=== PATIENT | male | born 1960 | race Caucasian/White ===

== ENCOUNTER 2023-06-23 17:58 | Inpatient (IN) | payer MEDICARE, OTHER ==
[~2023-06-23] VITALS: Ht 170.2 cm; Wt 79.4 kg
[~2023-06-23 17:58] MED LIST: INSU100V7 SQ; LISI-782 PO
[2023-06-23 18:30] LABS: BASOPHILS % (AUTO) 0.7 % (0.0-2.0); EOSINOPHILS # (AUTO) 0.2 K/uL (0.0-0.7); EOSINOPHILS % (AUTO) 2.6 % (0.0-7.0); HEMATOCRIT 31.2 % (36.7-47.1); HEMOGLOBIN 10.9 g/dL (12.5-16.3); LYMPHOCYTES # (AUTO) 1.7 K/uL (0.8-4.8); LYMPHOCYTES % (AUTO) 28.5 % (20.5-51.5); MEAN CORPUSCULAR HEMOGLOBIN 34.6 uug (23.8-33.4); MEAN CORPUSCULAR HGB CONC 35 g/dL (32.5-36.3); MEAN CORPUSCULAR VOLUME 98.9 fL (73.0-96.2); MONOCYTES # (AUTO) 0.7 K/uL (0.1-1.30); MONOCYTES % (AUTO) 11.3 % (0.0-11.0); NEUTROPHILS # (AUTO) 3.3 K/uL (1.8-8.9); NEUTROPHILS % (AUTO) 56.9 % (38.5-71.5); PLATELET COUNT (AUTO) 110 K/uL (152-348); RED BLOOD CELL COUNT(AUTO) 3.15 MIL/uL (4.06-5.63); RED CELL DISTRIBUTION WIDTH 15.2 % (12.1-16.2); WHITE BLOOD COUNT (AUTO) 5.8 K/uL (3.6-10.2)
[2023-06-23 18:31] LABS: DIFFERENTIAL COMMENT 1
[2023-06-23 18:38] LABS: CALCIUM 10.4 mg/dL (8.5-10.1); CARBON DIOXIDE 29 mmol/L (21-32); CHLORIDE 101 mmol/L (98-107); GLUCOSE 125 mg/dL (74-106); POTASSIUM 4.7 mmol/L (3.5-5.1); SODIUM SERUM 139 mmol/L (136-145); UREA NITROGEN, BLOOD 68 mg/dL (7-18)
[2023-06-23 18:44] LABS: CREATININE 8.3 mg/dL (0.6-1.3)
[2023-06-23 18:52] LABS: ALBUMIN 3.5 g/dL (3.4-5.0); ALKALINE PHOSPHATASE 136 U/L (50-136); ASPARTATE AMINOTRANSFERASE < 5 U/L (15-37); BILIRUBIN,DIRECT 0.1 mg/dL (0.0-0.2); BILIRUBIN,TOTAL 0.5 mg/dL (0.2-1.0); TOTAL PROTEIN, SERUM 7.5 g/dL (6.4-8.2)
[2023-06-23 18:53] LABS: ALANINE AMINOTRANSFERASE < 6 U/L (16-63); NT-PRO BNP 113004 pg/mL (0-125)
[2023-06-23] MEDS ORDERED: hydrALAZINE HCL 20 MG/1 ML VIAL ONE (19:10)
[2023-06-23] MEDS: hydrALAZINE HCL 20 MG/1 ML VIAL IV ONE (19:16)
[2023-06-23 19:33] VITALS: O2SAT 99
[2023-06-23] MEDS ORDERED: CLONIDINE HCL 0.1 MG TABLET PO PRN (20:15)
[2023-06-23] MEDS ORDERED: REMEDY ESSENTIAL ZINC PASTE 113 GM TP PRN (20:15)
[2023-06-23] MEDS ORDERED: ONDANSETRON 4 MG/2 ML VIAL IV PRN (20:15)
[2023-06-23] MEDS ORDERED: MAGNESIUM HYDROXIDE 30 ML LIQUID UDC PO PRN (20:15)
[2023-06-23] MEDS ORDERED: ACETAMINOPHEN 325 MG TABLET PO PRN (20:15)
[2023-06-23 22:00] VITALS: BP 133/74; TEMP 98.3; O2SAT 99
[2023-06-23] MEDS: HEPARIN SODIUM,PORCINE 5,000 UNITS/ML VIAL SQ SCH (23:19)
[2023-06-24 04:00] VITALS: BP 124/78; TEMP 97.5; O2SAT 100
[2023-06-24 04:32] VITALS: O2SAT 99
[2023-06-24 06:00] VITALS: BP 162/65; TEMP 98; O2SAT 99
[2023-06-24] MEDS: PANTOPRAZOLE SODIUM 40 MG TABLET.DR PO SCH (06:26)
[2023-06-24 07:52] VITALS: BP 184/68; TEMP 98.4; O2SAT 97
[2023-06-24 08:00] VITALS: BP 184/68; TEMP 98.4
[2023-06-24] MEDS: hydrALAZINE HCL 20 MG/1 ML VIAL IV PRN (08:29)
[2023-06-24 09:38] VITALS: BP 145/59; TEMP 98.1; O2SAT 94
[2023-06-25 05:10] LABS: HEPATITIS B SURFACE AG Negative (Negative)
== END 2023-06-24 09:40 | disposition left against medical advice (07) | DRG 291 ==
LOC: ER 18:00 → TELE3 21:35
PROVIDERS: ADMIT Student in an Organized Health Care Education/Training Program; ATTEND Student in an Organized Health Care Education/Training Program
PROC: 5A09357 Assistance with Respiratory Ventilation, Less than 24 Consecutive Hours, Continuous Positive Airway Pressure (ICD-10-PCS; 2023-06-23)
PROC: 5A1D70Z Performance of Urinary Filtration, Intermittent, Less than 6 Hours Per Day (ICD-10-PCS; principal; 2023-06-24)
DX: I13.2 Hypertensive heart and chronic kidney disease with heart failure and with stage 5 chronic kidney disease, or end stage renal disease (principal); I50.33 Acute on chronic diastolic (congestive) heart failure; J96.01 Acute respiratory failure with hypoxia; N18.6 End stage renal disease; E11.22 Type 2 diabetes mellitus with diabetic chronic kidney disease; Z99.2 Dependence on renal dialysis; Z79.4 Long term (current) use of insulin; Z86.73 Personal history of transient ischemic attack (TIA), and cerebral infarction without residual deficits; Z91.158 Patient's noncompliance with renal dialysis for other reason; D63.1 Anemia in chronic kidney disease; Z53.29 Procedure and treatment not carried out because of patient's decision for other reasons; I16.0 Hypertensive urgency; D69.6 Thrombocytopenia, unspecified; Z79.899 Other long term (current) drug therapy; R25.3 Fasciculation
CPT/HCPCS: 36415; 71045; 84484; 85025; 85730; 86706; 87340; 93005; 94660; G0378; J0360; J1644; J7040